=== PATIENT | female | born 1965 | race Caucasian/White ===

== ENCOUNTER 2017-08-09 20:10 | Emergency (ER) | payer BC ==
[2017-08-09 20:31] VITALS: BP 139/89
--- NOTE | 2017-08-09 21:14 | UC ---
Ear Complaint HPI - History of Current Complaint Chief Complaint: UCEar Stated Complaint: EAR PAIN,DRAINING Time Seen by Provider: 08/09/17 21:13 Pain Intensity: 3 - Allergies/Home Medications Allergies/Adverse Reactions: Allergies Allergy/AdvReac Type Severity Reaction Status Date / Time No Known Allergies Allergy Verified 08/09/17 20:31 PMH/Surg Hx/FS Hx/Imm Hx - Surgical History Surgical History: Yes Surgery Procedure, Year, and Place: rt fingers pinned ORIF , dental, t&a, right breast bx with clip placement, WISDOM TEETH - Family History Known Family History: Negative: Other Family History: neg for rheumatologic diseases, positive hx for OA - Social History Alcohol Use: Occasionally Substance Use Type: None Smoking Status (MU): Never Smoked Tobacco Physical Exam Vital Signs: Initial Vital Signs Temp 97.4 F 08/09/17 20:27 Pulse 73 08/09/17 20:27 Resp 18 08/09/17 20:27 BP 139/89 08/09/17 20:27 Pulse Ox 99 08/09/17 20:27 Discharge - Discharge Plan Referrals: Cherie Jones MD [Primary Care Provider] -
[2017-08-09] MEDS ORDERED: Cefdinir 250mg/5 ml* 100 ml ORAL.SUSP PO ONE (21:29)
== END 2017-08-09 21:52 | disposition home or self-care (01) ==
LOC: UCEAST 20:10
DX: H92.09 Otalgia, unspecified ear (principal)
CPT/HCPCS: 99212; G0463